=== PATIENT | female | born 1950 | race Two or more races ===

== ENCOUNTER 2024-11-10 22:44 | Inpatient (IN) | payer MEDICARE, OTHER ==
[~2024-11-10] VITALS: Ht 147.3 cm; Wt 50.8 kg
[2024-11-11 00:25] LABS: PLATELET COUNT (AUTO) 224 K/uL (179-408); RED BLOOD CELL COUNT(AUTO) 4.04 MIL/uL (3.63-4.92); RED CELL DISTRIBUTION WIDTH 13.6 % (12.3-17.7); WHITE BLOOD COUNT (AUTO) 5.8 K/uL (3.8-11.8)
[2024-11-11 00:29] LABS: CREATININE 0.5 mg/dL (0.6-1.3); SODIUM SERUM 130 mmol/L (136-145); UREA NITROGEN, BLOOD 7 mg/dL (7-18)
[2024-11-11 00:43] LABS: ASPARTATE AMINOTRANSFERASE 16 U/L (15-37); ETHANOL < 3 MG/DL (0-10); TOTAL PROTEIN, SERUM 6.9 g/dL (6.4-8.2)
[2024-11-11] MEDS ORDERED: NITR-104 PO (01:13)
[2024-11-11 02:51] VITALS: BP 161/60; TEMP 98.2; O2SAT 96
[2024-11-11] MEDS ORDERED: MAG HYDROX/AL HYDROX/SIMETH 30 ML LIQUID UDC PO PRN (04:15)
[2024-11-11] MEDS ORDERED: ZOLPIDEM 5 MG TABLET PO PRN ×2 (04:15)
[2024-11-11] MEDS ORDERED: ACETAMINOPHEN 325 MG TABLET PO PRN (04:15)
[2024-11-11] MEDS ORDERED: MAGNESIUM HYDROXIDE 30 ML LIQUID UDC PO PRN (04:15)
[2024-11-11] MEDS: BLOOD SUGAR DIAGNOSTIC 1 EACH STRIP VI ONE (05:05)
[2024-11-11] MEDS: LORAZEPAM 1 MG TABLET PO PRN (05:15)
[2024-11-11 08:58] VITALS: BP 95/50; TEMP 97.2; O2SAT 96
[2024-11-11] MEDS: QUETIAPINE FUMARATE 25 MG TABLET PO SCH (09:16)
[2024-11-11] MEDS: NITROFURANTOIN/NITROFURAN MAC 100 MG CAPSULE PO SCH (12:56)
[2024-11-11 16:22] VITALS: BP 108/46; TEMP 97.6; O2SAT 99
[2024-11-11 20:08] VITALS: BP 110/59; TEMP 97.8; O2SAT 97
[2024-11-11] MEDS: LORAZEPAM 0.5 MG TABLET PO PRN (21:39)
[2024-11-12 07:30] VITALS: BP 119/62; TEMP 98; O2SAT 98
[2024-11-12 07:35] LABS: ASPARTATE AMINOTRANSFERASE 9 U/L (15-37); CREATININE 0.5 mg/dL (0.6-1.3); SODIUM SERUM 131 mmol/L (136-145); TOTAL PROTEIN, SERUM 6.2 g/dL (6.4-8.2); UREA NITROGEN, BLOOD 16 mg/dL (7-18)
[2024-11-12] MEDS: CYANOCOBALAMIN 1000 MCG/ML VIAL IM SCH (15:15)
[2024-11-12 15:51] VITALS: BP 90/47; TEMP 98; O2SAT 98
[2024-11-12] MEDS: FOLIC ACID 1 MG TABLET PO SCH (17:15)
[2024-11-12 19:47] VITALS: BP 116/51; TEMP 98.1; O2SAT 98
[2024-11-13 09:16] VITALS: BP 142/63; TEMP 97.8; O2SAT 98
[2024-11-13 15:49] VITALS: BP 111/56; TEMP 98; O2SAT 98
[2024-11-13 20:00] VITALS: BP 124/56; TEMP 98.1; O2SAT 100
[2024-11-13] MEDS: QUETIAPINE FUMARATE 25 MG TABLET PO SCH (20:46)
[2024-11-14 09:13] VITALS: BP 132/79; TEMP 98.2; O2SAT 98
[2024-11-14 15:27] VITALS: BP 110/48; TEMP 98.2; O2SAT 98
[2024-11-14 20:00] VITALS: BP 114/47; TEMP 98.6; O2SAT 96
[2024-11-15 08:34] VITALS: BP 186/85; TEMP 98.2; O2SAT 98
[2024-11-15 16:44] VITALS: BP 136/65; TEMP 98.2; O2SAT 98
[2024-11-15 17:07] LABS: METHYLMALONIC ACID 120.0 nmol/L (0-378)
[2024-11-15 20:00] VITALS: BP 130/67; TEMP 98.1; O2SAT 98
[2024-11-16 07:51] LABS: CREATININE 0.4 mg/dL (0.6-1.3); SODIUM SERUM 139 mmol/L (136-145); UREA NITROGEN, BLOOD 12 mg/dL (7-18)
[2024-11-16 08:28] VITALS: BP 118/70; TEMP 98; O2SAT 99
[2024-11-16 16:50] VITALS: BP 184/67; TEMP 98.1; O2SAT 98
[2024-11-16 20:32] VITALS: BP 111/52; TEMP 97.9; O2SAT 95
[2024-11-16] MEDS: QUETIAPINE FUMARATE 25 MG TABLET PO SCH (20:45)
[2024-11-17] MEDS: ENSURE ENLIVE (VAN) 240 ML LIQUID PO SCH (08:15)
[2024-11-17 08:22] VITALS: BP 122/58; TEMP 98; O2SAT 99
[2024-11-17 10:11] LABS: *BILIRUBIN,URIN NEGATIVE (NEGATIVE); *BLOOD, URINE NEGATIVE (NEGATIVE); *CLARITY,URINE CLEAR (CLEAR); *COLOR,URINE YELLOW (YELLOW); *KETONES,URINE NEGATIVE (NEGATIVE); *PROTEIN,URINE NEGATIVE (NEGATIVE); *UROBILINOGEN,URINE 0.2 E.U./dl (NORMAL); LEUKOCYTE ESTERASE ,URINE NEGATIVE (NEGATIVE); NITRITE, URINE NEGATIVE (NEGATIVE); UGLUCOSE NEGATIVE (NEGATIVE)
[2024-11-17 16:37] VITALS: BP 118/56; TEMP 97.9; O2SAT 95
[2024-11-18 08:15] LABS: CREATININE 0.5 mg/dL (0.6-1.3); SODIUM SERUM 141 mmol/L (136-145); UREA NITROGEN, BLOOD 12 mg/dL (7-18)
[2024-11-18 08:33] VITALS: BP 126/62; TEMP 98; O2SAT 98
[2024-11-18 16:56] VITALS: BP 133/66; TEMP 98; O2SAT 98
[2024-11-18 20:00] VITALS: BP 124/56; TEMP 98.4; O2SAT 97
[2024-11-19 08:06] VITALS: BP 128/63; TEMP 98; O2SAT 98
[2024-11-19 15:11] VITALS: BP 124/65; TEMP 98; O2SAT 98
[2024-11-19 20:00] VITALS: BP 99/48; TEMP 98; O2SAT 97
[2024-11-19 20:15] VITALS: BP 118/72
[2024-11-20 08:19] VITALS: BP 158/82; TEMP 97.6; O2SAT 97
[2024-11-20 17:38] VITALS: BP 142/86; TEMP 97.7; O2SAT 97
[2024-11-20 20:00] VITALS: BP 109/55; TEMP 98.2; O2SAT 97
[2024-11-21 08:04] VITALS: BP 150/72; TEMP 97.9; O2SAT 96
[2024-11-25] MEDS ORDERED: CYANOCOBALAMIN 1000 MCG/ML VIAL IM SCH (09:00)
[2024-12-17] MEDS ORDERED: CYANOCOBALAMIN 1,000 MCG TABLET PO SCH (09:00)
== END 2024-11-21 15:45 | disposition home health service (06) | DRG 885 ==
LOC: ER 22:56 → GPS 11-11 01:26
PROVIDERS: ADMIT Psychiatry & Neurology Psychiatry; ATTEND Nurse Practitioner Acute Care
DX: F29 Unspecified psychosis not due to a substance or known physiological condition (principal); G93.41 Metabolic encephalopathy; N39.0 Urinary tract infection, site not specified; F02.84 Dementia in other diseases classified elsewhere, unspecified severity, with anxiety; E87.1 Hypo-osmolality and hyponatremia; F02.82 Dementia in other diseases classified elsewhere, unspecified severity, with psychotic disturbance; E86.0 Dehydration; Z86.73 Personal history of transient ischemic attack (TIA), and cerebral infarction without residual deficits; G30.9 Alzheimer's disease, unspecified; E83.41 Hypermagnesemia; E86.1 Hypovolemia
CPT/HCPCS: 36415; 70450; 83735; 83921; 84100; 84443; 84550; 85025; 87086; G0480; J3420